=== PATIENT | female | born 1970 | race Hispanic/Latino ===

== ENCOUNTER → 2018-10-19 | Day surgery (SDC) | payer OTHER ==
[~2018-10-19] MED LIST: CLINDAMYCIN PHOS 900MG/ 50ML 50 ML IV ONE; DEXAMETHASONE SOD PHOS INJ 4 MG/ML VIAL ONE; FENTANYL CITRATE/PF 100MCG/2 ML INJ ONE; GLIPIZIDE5 MG PO; HYDROGEN PEROXIDE 120 ML BTL ONE; INHALERS INH; INSULIN REGULAR, HUMAN 100 UNIT/1 ML 3ML VIAL ONE; LIDOCAINE HCL 2% LOCAL INJ 5 ML SDV VIAL INJ ONE; MIDAZOLAM HCL 2 MG/2 ML VIAL ONE; ONDANSETRON HCL INJ 2MG/ML 2ML 2 MG/ML VIAL ONE; PROPOFOL IV EMULSION 10 MG/ML 20 ML VIAL ONE; SEVOFLURANE INHAL SOLN 250 ML PEN BTL ONE; metformin PO
--- OUTSIDE RECORDS SUMMARY | 2018-10-19 10:44 | XMS REPORT | Clinical Summary ---
Author Author [facility] Organization [facility] Address Unknown Phone Unavailable Care Team Providers Care Mathematics Professor Name Role Phone PCP Unavailable Allergies Comments Active Allergy Reactions Severity Noted Date Penicillins Rash 08/18/2014 Medications End Date Status Medication Sig Dispensed Refills Start Date Active naproxen (NAPROSYN) 500 Take 1 tablet 30 tablet 0 mg tabletIndications: by mouth 2 5 Breast mass times daily (with meals). Active albuterol (VENTOLIN Inhale 4 1 Month 0 HFA,PROVENTIL HFA,PROAIR Puffs by Supply 8 HFA) 90 mcg/actuation mouth every 4 inhalerIndications: hours as Cough, Bronchitis needed for Wheezing (Cough). Active traMADol (ULTRAM) 50 mg Take 1 tablet 20 tablet 0 tabletIndications: RUQ by mouth 8 pain every 8 hours as needed for Pain. Active tamsulosin (FLOMAX) 0.4 Take 1 90 capsule 0 mg extended release capsule by 8 capsuleIndications: Flank mouth daily. pain Active ibuprofen (MOTRIN) 800 mg Take 1 tablet 60 tablet 0 tabletIndications: Flank by mouth 8 pain, RUQ pain every 8 hours as needed for Pain. 02/01/2018 Discontinued tamsulosin (FLOMAX) 0.4 Take 1 30 capsule 0 mg extended release capsule by 5 capsuleIndications: Flank mouth daily. pain 02/01/2018 Discontinued acetaminophen-codeine Take 1 tablet 30 tablet 0 (TYLENOL/CODEINE #3) by mouth 5 300-30 mg per every 4 hours tabletIndications: Flank as needed for pain Pain. 02/01/2018 Discontinued pseudoephedrine (SUDAFED) Take 2 30 tablet 0 30 mg tabletIndications: tablets by 8 Cough mouth every 6 hours as needed for Congestion. 05/02/2018 metFORMIN (GLUCOPHAGE) Take 2 360 tablet 0 500 mg tabletIndications: tablets by 8 Type 2 diabetes mellitus mouth 2 times without complication, daily (with without long-term current meals) for 90 use of insulin days. 02/15/2018 Bismuth Subcit Take 3 120 capsule 0 X-Wdwfcdmmn-ZSB (PYLERA) capsules by 8 140-125-125 mg delayed mouth 4 times release daily (after capsuleIndications: H. meals and pylori infection nightly) for 10 days For stomach infection, take with omeprazole. 02/15/2018 omeprazole (PRILOSEC) 20 Take 1 20 capsule 0 mg delayed release capsule by 8 capsuleIndications: H. mouth 2 times pylori infection daily for 10 days For stomach infection - take with pylera antibiotics. 09/17/2018 cefpodoxime (VANTIN) 100 Take 1 tablet 20 tablet 0 mg tabletIndications: by mouth 2 9 Dysuria times daily for 10 days. Active Problems Problem Noted Date H. pylori infection 02/05/2018 Abdominal pain 01/27/2018 RUQ pain 01/26/2018 Type 2 diabetes mellitus without complication, without long-term current 01/26/2018 use of insulin Bilateral nephrolithiasis 01/26/2018 Cough 05/24/2017 Flank pain 03/19/2015 Breast mass 08/18/2014 Chest pain Acute suppurative otitis media of right ear without spontaneous rupture of tympanic membrane Bronchitis Resolved Problems Problem Noted Date Resolved Date Biliary colic 01/26/2018 02/01/2018 Acute cystitis without hematuria 02/01/2018 Pyelonephritis 02/01/2018 Encounters Care Team Description Date Type Specialty Jono Estrella MD Dysuria (Primary Dx); Upper abdominal pain; Chest pain, unspecified type; Pyelonephritis; RUQ pain 09/07/2018 Emergency Emergency Medicine 09/06/2018 Travel Jass Buchanan MD Soni, Samit, MD NO SHOW ENCOUNTER (Primary Dx) 03/05/2018 Office Visit Urology Jass Buchanan MD Results (H pylori stool Ag + 01/28/2018) 02/05/2018 Telephone Peter Arnold MD Huang, William Y, MD Pyelonephritis (Primary Dx); Flank pain; RUQ pain; Bilateral nephrolithiasis; Chest pain on breathing; Right upper quadrant abdominal pain; Type 2 diabetes mellitus without complication, without long-term current use of insulin 01/26/2018 Hospital - Encounter 02/01/2018 after 10/18/2017 Immunizations Name Administration Dates Next Due Influenza, Vaccine 01/29/2018 <FLUCELVAX>(Preservative- Free) PPV 23 (Pneumococcal 01/29/2018 Polysaccharide 23 Valent) Social History Date Tobacco Use Types Packs/Day Years Used Never Smoker Smokeless Tobacco: Never Used Drinks/Week oz/Week Comments Alcohol Use No Sex Assigned at Date Recorded Not on file Industry Job Start Date Occupation Not on file Not on file Not on file Travel End Travel History Travel Start No recent travel history available. Last Filed Vital Signs Reading Time Taken Comments Vital Sign 100/72 09/07/2018 3:24 PM CDT Blood Pressure 65 09/07/2018 3:24 PM CDT Pulse 36.6 C (97.8 F) 09/07/2018 3:24 PM CDT Temperature 17 09/07/2018 3:24 PM CDT Respiratory Rate 99% 09/07/2018 3:24 PM CDT Oxygen Saturation - - Inhaled Oxygen Concentration 88.5 kg (195 lb 3.2 oz) 02/01/2018 6:08 AM CDT Weight 149.9 cm (4' 11") 01/26/2018 8:12 PM CDT Height 39.43 01/26/2018 8:12 PM CDT Body Mass Index Plan of Treatment Health Maintenance Due Date Last Done Comments DM Foot Exam (Yearly) 07/13/1987 DM Microalbumin Urine 07/13/1987 Scrn (Yearly) DM Retinal Exam (Yearly) 07/13/1987 Cervical Cancer Scrn (3 1990 Yrs) Breast Cancer Scrn 2009 (Yearly) IMM Influenza Seasonal 01/22/2019 01/29/2018 Oct to June (>/=19 yrs) DM HGBA1C (Yearly) 01/26/2019 01/26/2018 Procedures Comments Procedure Name Priority Date/Time Associated Diagnosis U/S ABDOMEN LIMITED STAT 09/07/2018 RUQ pain 2:20 PM CDT 12 LEAD EKG Routine 09/07/2018 11:34 AM CDT TROPONIN I POC Routine 09/07/2018 11:19 AM CDT TROPONIN I POC Routine 09/07/2018 8:04 AM CDT 12 LEAD EKG STAT 09/07/2018 7:56 AM CDT XRAY CHEST 2 VIEWS STAT 09/07/2018 Chest pain, unspecified 5:38 AM CDT type 12 LEAD EKG Routine 09/07/2018 5:21 AM CDT URINE CULTURE STAT 09/07/2018 5:17 AM CDT TROPONIN I POC Routine 09/07/2018 5:15 AM CDT BMP POC Routine 09/06/2018 11:52 PM CDT URINALYSIS STAT 09/06/2018 11:48 PM CDT HIV-1/HIV-2 ROUTINE STAT 09/06/2018 SCREENING 11:40 PM CDT LIPASE STAT 09/06/2018 11:40 PM CDT LIVER PROFILE STAT 09/06/2018 11:40 PM CDT CBC/DIFF STAT 09/06/2018 11:40 PM CDT POC GLUCOSE - IN LAB Routine 02/01/2018 (STAT) 12:43 PM CDT COMPREHENSIVE METABOLIC Routine 02/01/2018 PANEL 10:20 AM CDT CBC/DIFF Routine 02/01/2018 10:20 AM CDT POC GLUCOSE - IN LAB Routine 02/01/2018 (STAT) 8:27 AM CDT POC GLUCOSE - IN LAB Routine 01/31/2018 (STAT) 8:52 PM CDT 12 LEAD EKG Routine 01/31/2018 6:53 PM CDT POC GLUCOSE - IN LAB Routine 01/31/2018 (STAT) 5:46 PM CDT POC GLUCOSE - IN LAB Routine 01/31/2018 (STAT) 12:11 PM CDT POC GLUCOSE - IN LAB Routine 01/31/2018 (STAT) 9:37 AM CDT COMPREHENSIVE METABOLIC STAT 01/31/2018 PANEL 4:50 AM CDT CBC/DIFF STAT 01/31/2018 4:50 AM CDT POC GLUCOSE - IN LAB Routine 01/30/2018 (STAT) 8:28 PM CDT POC GLUCOSE - IN LAB Routine 01/30/2018 (STAT) 5:34 PM CDT POC GLUCOSE - IN LAB Routine 01/30/2018 (STAT) 12:44 PM CDT POC GLUCOSE - IN LAB Routine 01/30/2018 (STAT) 8:22 AM CDT COMPREHENSIVE METABOLIC STAT 01/30/2018 PANEL 5:14 AM CDT CBC/DIFF STAT 01/30/2018 5:14 AM CDT POC GLUCOSE - IN LAB Routine 01/29/2018 (STAT) 8:50 PM CDT POC GLUCOSE - IN LAB Routine 01/29/2018 (STAT) 5:43 PM CDT NM HEPATOBILIARY SCAN Routine 01/29/2018 Right upper quadrant 1:16 PM CDT abdominal pain POC GLUCOSE - IN LAB Routine 01/29/2018 (STAT) 12:28 PM CDT POC GLUCOSE - IN LAB Routine 01/29/2018 (STAT) 8:25 AM CDT COMPREHENSIVE METABOLIC STAT 01/29/2018 PANEL 5:25 AM CDT CBC/DIFF STAT 01/29/2018 5:25 AM CDT POC GLUCOSE - IN LAB Routine 01/28/2018 (STAT) 8:48 PM CDT POC GLUCOSE - IN LAB Routine 01/28/2018 (STAT) 5:48 PM CDT POC GLUCOSE - IN LAB Routine 01/28/2018 (STAT) 12:41 PM CDT SEQUENTIAL COMPRESSION STAT 01/28/2018 PUMP 12:22 PM CDT H. PYLORI STOOL AG Routine 01/28/2018 12:09 PM CDT POC GLUCOSE - IN LAB Routine 01/28/2018 (STAT) 8:33 AM CDT COMPREHENSIVE METABOLIC STAT 01/28/2018 PANEL 4:00 AM CDT CBC/DIFF STAT 01/28/2018 4:00 AM CDT POC GLUCOSE - IN LAB Routine 01/27/2018 (STAT) 9:12 PM CDT POC GLUCOSE - IN LAB Routine 01/27/2018 (STAT) 5:26 PM CDT POC GLUCOSE - IN LAB Routine 01/27/2018 (STAT) 1:09 PM CDT POC GLUCOSE - IN LAB Routine 01/27/2018 (STAT) 11:33 AM CDT POC GLUCOSE - IN LAB Routine 01/27/2018 (STAT) 8:29 AM CDT COMPREHENSIVE METABOLIC STAT 01/27/2018 PANEL 6:00 AM CDT CBC/DIFF STAT 01/27/2018 6:00 AM CDT INFUSION PUMP STAT 01/26/2018 10:14 PM CDT POC GLUCOSE - IN LAB Routine 01/26/2018 (STAT) 10:13 PM CDT URINALYSIS STAT 01/26/2018 9:39 PM CDT HEMOGLOBIN A1C Routine 01/26/2018 7:34 PM CDT POC GLUCOSE - IN LAB Routine 01/26/2018 (STAT) 7:31 PM CDT URINALYSIS STAT 01/26/2018 6:48 PM CDT URINE CULTURE STAT 01/26/2018 6:40 PM CDT POC GLUCOSE - IN LAB Routine 01/26/2018 (STAT) 6:10 PM CDT XRAY CHEST 2 VIEWS STAT 01/26/2018 Chest pain on breathing 6:04 PM CDT U/S ABDOMEN STAT 01/26/2018 RUQ pain 1:[address] ABDOMEN AND PELVIS STAT 01/26/2018 Flank pain CONTRAST 5:12 AM CDT VBG POC Routine 01/25/2018 10:01 PM CDT BMP POC Routine 01/25/2018 9:56 PM CDT 12 LEAD EKG Routine 01/25/2018 9:55 PM CDT TEST STAT 01/25/2018 9:41 PM CDT HIV-1/HIV-2 ROUTINE STAT 01/25/2018 SCREENING 9:41 PM CDT URINALYSIS STAT 01/25/2018 9:41 PM CDT LIPASE STAT 01/25/2018 9:41 PM CDT LIVER PROFILE STAT 01/25/2018 9:41 PM CDT CBC/DIFF STAT 01/25/2018 9:41 PM CDT after 10/18/2017 Results * U/S ABDOMEN LIMITED (09/07/2018 2:20 PM CDT) Specimen Impressions Performed At IMPRESSION: [facility] 1.Steatosis and hepatomegaly. No focal mass. 2.Nonobstructing nephrolithiasis. 3.Right renal simple cyst, unchanged. A "PRELIMINARY" report was made available via [employer] at the time of dictation by the resident indicated below. The report is finalized if attending/staff radiologist signature is included. Dictated By: Kirby Acosta DO, 09/07/2018 3:10 PM I have reviewed the study and agree with the findings in this report. Signed By: Lauri Patel, 09/07/2018 3:16 PM Narrative Performed At EXAM: Right Upper Quadrant Ultrasound SMS INDICATION: ruq pain COMPARISON: Abdominal ultrasound 01/26/2018, abdominal pelvis CT 01/26/2018 TECHNIQUE: Transverse and longitudinal images of the right upper abdomen were obtained. FINDINGS: Liver: Size: 16.4 cm in the right midclavicular line Appearance: Mildly increased echogenicity, smooth contour Mass: No focal masses Gallbladder: Stones/Sludge: None Wall: 0.2 cm Appearance: No pericholecystic fluid or hydrops. Sonographic Campos's Sign: Negative Bile Ducts: Intrahepatic Ducts: No dilatation Extrahepatic Ducts: Common bile duct measures 0.3 cm Pancreas: Visualized portions are increased in echotexture consistent with lipomatosis. No masses or ductal dilatation. Right Kidney: Size: 12.9 cm Echogenicity: Normal Parenchymal thickness: Normal Collecting system: No hydronephrosis Stones: 0.6 x 0.4 x 0.3 cm nonobstructing calculus in inferior pole Cyst/Mass: 0.9 x 1.1 x 1 cm anechoic unilocular simple cyst at inferior pole. Vessels: Aorta: Visualized portions are normal Inferior Vena Cava: Visualized portions are normal Main Portal Vein: 1.0 cm, normal size with hepatopetal flow. Free Fluid: No ascites or pleural effusion Procedure Note Interface, Rad/Mammog In - 09/07/2018 3:22 PM CDT EXAM: Right Upper Quadrant Ultrasound INDICATION: ruq pain COMPARISON: Abdominal ultrasound 01/26/2018, abdominal pelvis CT 01/26/2018 TECHNIQUE: Transverse and longitudinal images of the right upper abdomen were obtained. FINDINGS: Liver: Size: 16.4 cm in the right midclavicular line Appearance: Mildly increased echogenicity, smooth contour Mass: No focal masses Gallbladder: Stones/Sludge: None Wall: 0.2 cm Appearance: No pericholecystic fluid or hydrops. Sonographic Campos's Sign: Negative Bile Ducts: Intrahepatic Ducts: No dilatation Extrahepatic Ducts: Common bile duct measures 0.3 cm Pancreas: Visualized portions are increased in echotexture consistent with lipomatosis. No masses or ductal dilatation. Right Kidney: Size: 12.9 cm Echogenicity: Normal Parenchymal thickness: Normal Collecting system: No hydronephrosis Stones: 0.6 x 0.4 x 0.3 cm nonobstructing calculus in inferior pole Cyst/Mass: 0.9 x 1.1 x 1 cm anechoic unilocular simple cyst at inferior pole. Vessels: Aorta: Visualized portions are normal Inferior Vena Cava: Visualized portions are normal Main Portal Vein: 1.0 cm, normal size with hepatopetal flow. Free Fluid: No ascites or pleural effusion IMPRESSION IMPRESSION: 1. Steatosis and hepatomegaly. No focal mass. 2. Nonobstructing nephrolithiasis. 3. Right renal simple cyst, unchanged. A "PRELIMINARY" report was made available via [employer] at the time of dictation by the resident indicated below. The report is finalized if attending/staff radiologist signature is included. Dictated By: Kirby Acosta DO, 09/07/2018 3:10 PM I have reviewed the study and agree with the findings in this report. Signed By: Lauri Patel, 09/07/2018 3:16 PM Performing Organization Address City/State/Zipcode Phone Number SMS * 12 LEAD EKG (09/07/2018 11:34 AM CDT) 12 LEAD EKG FOR [facility] Test Date:2018-09-07 Pat Name: KYLE MCCARTHY epartment: 5520 Room: Gender: Clinical Specialty Rep: [id number] :1971-0 07-12 Requested By: JUANCARLOS [place] Order Number: [id number] Reading MD: Christina Wiley Measurements Intervals [place] Rate: 56 P:28 DC: 136 QRS: 3 QRSD: 96 T:-6 QT: 477 QTc:464 Interpretive Statements SINUS BRADYCARDIA LOW QRS VOLTAGE IN PRECORDIAL LEADS [QRS DEFLECTION < 1.0 mV IN CHEST LEADS] Electronically Signed On 09-07-2018 17:16:23 CDT by Christina Wiley Specimen Performing Organization Address [facility] Phone Number [facility] * TROPONIN I POC (09/07/2018 11:19 AM CDT) Only the most recent of 3 results within the time period is included. Troponin POC 0.01 0.00 - 0.08 ng/mL BT MAIN-STATION 1 Specimen Performing Organization Address [facility] Phone Number MISYS BT MAIN-STATION 1 * 12 LEAD EKG (09/07/2018 7:56 AM CDT) 12 LEAD EKG FOR [facility] Test Date:2018-09-07 Pat Name: KYLE MCCARTHY epartment: 5520 Room: Gender: Clinical Specialty Rep: [id number] :1971-0 07-12 Requested By: JONO ESTRELLA Order Number: [id number] Reading MD: Christina Wiley Measurements Intervals [place] Rate: 60 P:38 DC: 149 QRS: 10 QRSD: 86 T:-8 QT: 455 QTc:457 Interpretive Statements SINUS RHYTHM LOW QRS VOLTAGE IN PRECORDIAL LEADS Electronically Signed On 09-07-2018 17:16:33 CDT by Christina Wiley Specimen Performing Organization Address [facility] Phone Number [facility] * XRAY CHEST 2 VIEWS (09/07/2018 5:38 AM CDT) Only the most recent of 2 results within the time period is included. Specimen Impressions Performed At IMPRESSION: [facility] No acute thoracic abnormality. Dictated By: Juan F Blanco MD, 09/07/2018 5:43 AM I have reviewed the study and agree with the findings in this report. Signed By: Duke Forte MD, 09/07/2018 6:06 AM Narrative Performed At EXAMINATION:XRAY CHEST 2 VIEWS, Frontal and lateral [facility] INDICATION: chest pain COMPARISON:Chest radiograph from 01/26/2018. FINDINGS: TUBES/LINES:None LUNGS:No consolidations or edema. PLEURA:No effusions or pneumothorax. HEART/MEDIASTINUM:Normal cardiomediastinal silhouette. MUSCULOSKELETAL:No acute findings. UPPER ABDOMEN: Normal Procedure Note Interface, Rad/Mammog In - 09/07/2018 6:11 AM CDT EXAMINATION: XRAY CHEST 2 VIEWS, Frontal and lateral INDICATION: chest pain COMPARISON: Chest radiograph from 01/26/2018. FINDINGS: TUBES/LINES: None LUNGS: No consolidations or edema. PLEURA: No effusions or pneumothorax. HEART/MEDIASTINUM: Normal cardiomediastinal silhouette. MUSCULOSKELETAL: No acute findings. UPPER ABDOMEN: Normal IMPRESSION IMPRESSION: No acute thoracic abnormality. Dictated By: Juan F Blanco MD, 09/07/2018 5:43 AM I have reviewed the study and agree with the findings in this report. Signed By: Duke Forte MD, 09/07/2018 6:06 AM Performing Organization Address City/[facility] Phone Number [facility] * 12 LEAD EKG (09/07/2018 5:21 AM CDT) 12 LEAD EKG FOR [facility] Test Date:2018-09-07 Pat Name: KYLE MCCARTHY epartment: 5520 Room: Gender: F Clinical Specialty Rep: [id number] :1971-0 07-12 Requested By: JONO ESTRELLA Order Number: [id number] Reading MD: Pieter Paulino M.D. Measurements Intervals [place] Rate: 67 P:37 DC: 148 QRS: -3 QRSD: 85 T:-15 QT: 418 QTc:444 Interpretive Statements SINUS RHYTHM LOW QRS VOLTAGE IN PRECORDIAL LEADS NONSPECIFIC T-WAVE ABNORMALITY Electronically Signed On 09-07-2018 5:48:21 CDT by Pieter Paulino M.D. Specimen Performing Organization Address [facility] Phone Number [facility] * URINE CULTURE (09/07/2018 5:17 AM CDT) Only the most recent of 2 results within the time period is included. Spec Urine BT MICROBIOLOGY Description Order Comments None BT MICROBIOLOGY Culture 10,000-100,000 CFU/ml BT MICROBIOLOGY Klebsiella pneumoniae Skin yuri organisms Report Status Final 09/09/2018 BT MICROBIOLOGY Organism 10,000-100,000 CFU/ml BT MICROBIOLOGY Klebsiella pneumoniae Method TREY BT MICROBIOLOGY Amikacin <=8 Susceptible BT MICROBIOLOGY Cefazolin >16 Resistant BT MICROBIOLOGY Cefepime <=1 Susceptible BT MICROBIOLOGY Ceftriaxone <=1 Susceptible BT MICROBIOLOGY Ceftazidime <=0.5 Susceptible BT MICROBIOLOGY Ciprofloxacin 1 Susceptible BT MICROBIOLOGY Ertapenem <=0.25 Susceptible BT MICROBIOLOGY Gentamicin <=2 Susceptible BT MICROBIOLOGY Meropenem <=0.5 Susceptible BT MICROBIOLOGY Nitrofurantoin >64 Resistant BT MICROBIOLOGY Piperacillin/Ta 16/4 Susceptible BT MICROBIOLOGY zo Tobramycin <=2 Susceptible BT MICROBIOLOGY Trimeth-sulfame <=0.5/9.5 Susceptible BT MICROBIOLOGY thox Specimen Urine - Voided, urine Performing Organization Address [facility] Phone Number MISYS BT MICROBIOLOGY * BMP POC (09/06/2018 11:52 PM CDT) Only the most recent of 2 results within the time period is included. CO2 POC 27Comment: Physician Notified 21 - 32 mmol/L BT MAIN-STATION 1 Chloride POC 97 (L) 98 - 107 mmol/L BT MAIN-STATION 1 Potassium POC 3.8 3.50 - 5.10 mmol/L BT MAIN-STATION 1 Sodium POC 136 136 - 145 mmol/L BT MAIN-STATION 1 Glucose POC 283 (H) 74 - 106 mg/dL BT MAIN-STATION 1 Urea Nitrogen 8 7 - 18 mg/dL BT MAIN-STATION POC 1 Creatinine POC 0.4 (L) 0.6 - 1.3 mg/dL BT MAIN-STATION 1 Calcium Ionized 1.12 (L) 1.15 - 1.29 mmol/L BT MAIN-STATION POC 1 Hemoglobin POC 15.3 12.0 - 16.0 g/dL BT MAIN-STATION 1 Hematocrit POC 45.0 37.0 - 47.0 % BT MAIN-STATION 1 GFR, Estimated >60 mL/min/1.73 m2 BT MAIN-STATION 1 GFR, Estim, >60 mL/min/1.73 m2 BT MAIN-STATION Afr-Am 1 Specimen Performing Organization Address [facility] Phone Number MISYS BT MAIN-STATION 1 * UA CHEMISTRIES (09/06/2018 11:48 PM CDT) Only the most recent of 4 results within the time period is included. Color Yellow BT MAIN-STATION 3 Clarity Cloudy BT MAIN-STATION 3 Specific 1.025 1.001 - 1.035 BT MAIN-STATION [place] 3 pH 6.0 5 - 8 BT MAIN-STATION 3 Protein 1+ (A) NEG BT MAIN-STATION 3 Glucose 3+ (A) NEG BT MAIN-STATION 3 Ketones Negative NEG BT MAIN-STATION 3 Bilirubin Negative NEG BT MAIN-STATION 3 Nitrate Positive (A) NEG BT MAIN-STATION 3 Urobilinogen,Se 1.0 0.2 - 1.0 EU/dL BT MAIN-STATION mi-Qn 3 Leukocyte 3+ (A) NEG BT MAIN-STATION 3 Occult Blood Negative NEG BT MAIN-STATION 3 RBC 17 (H) 0 - 4 /HPF BT MAIN-STATION 3 WBC >182 (H) 0 - 5 /HPF BT MAIN-STATION 3 WBC Clumps Few BT MAIN-STATION 3 Bacteria Many BT MAIN-STATION 3 Epithelial Cell 1 /HPF BT MAIN-STATION 3 Specimen Urine Performing Organization Address [facility] Phone Number MISYS BT MAIN-STATION 3 * HIV-1/HIV-2 ROUTINE SCREENING (09/06/2018 11:40 PM CDT) Only the most recent of 2 results within the time period is included. HIV-1/HIV-2 Negative NEG BT OUTPATIENT DRAW 2 Specimen Performing Organization Address [facility] Phone Number MISYS BT OUTPATIENT DRAW 2 * LIVER PROFILE (09/06/2018 11:40 PM CDT) Only the most recent of 2 results within the time period is included. Protein, Total, 6.8 6.0 - 8.3 g/dL BT MAIN-STATION Serum 1 Albumin 4.0 3.7 - 5.3 g/dL BT MAIN-STATION 1 Bilirubin, 1.1 0.2 - 1.2 mg/dL BT MAIN-STATION Total 1 Alkaline 125 (H) 34 - 104 U/L BT MAIN-STATION Phosphatase, S 1 AST (SGOT) 18 13 - 39 U/L BT MAIN-STATION 1 ALT 19 7 - 52 U/L BT MAIN-STATION 1 D Bilirubin 0.1 0.0 - 0.2 mg/dL BT MAIN-STATION 1 Specimen Blood Performing Organization Address [facility] Phone Number MISYS BT MAIN-STATION 1 * LIPASE (09/06/2018 11:40 PM CDT) Only the most recent of 2 results within the time period is included. Lipase 34 11 - 82 U/L BT MAIN-STATION 1 Specimen Blood Performing Organization Address [facility] Phone Number MISYS BT MAIN-STATION 1 * CBC/DIFF (09/06/2018 11:40 PM CDT) Only the most recent of 8 results within the time period is included. WBC 8.7 4.5 - 11.0 K/uL BT MAIN-STATION 2 RBC 4.95 4.20 - 5.40 M/uL BT MAIN-STATION 2 Hemoglobin 14.1 12.0 - 16.0 g/dL BT MAIN-STATION 2 Hematocrit 43.1 37.0 - 47.0 % BT MAIN-STATION 2 MCV 87 82 - 92 fL BT MAIN-STATION 2 MCH 28.5 27.0 - 32.0 pg BT MAIN-STATION 2 MCHC 32.7 32.0 - 36.0 g/dL BT MAIN-STATION 2 RDW 39.0 36.4 - 46.3 fL BT MAIN-STATION 2 Platelets 255 150 - 400 K/uL BT MAIN-STATION 2 Mean Platelet 10.2 9.4 - 12.4 fL BT MAIN-STATION Volume 2 Percent NRBC 0.0 BT MAIN-STATION 2 Absolute NRBC 0.00 BT MAIN-STATION 2 Neutrophils 71.1 (H) 34.0 - 70.0 % BT MAIN-STATION 2 Lymphs 19.8 (L) 20.0 - 50.0 % BT MAIN-STATION 2 Monocytes 4.0 (L) 5.0 - 12.0 % BT MAIN-STATION 2 Eos 4.3 0.7 - 5.0 % BT MAIN-STATION 2 Basos 0.5 0.1 - 1.2 % BT MAIN-STATION 2 Immature 0.3 0.0 - 0.5 BT MAIN-STATION Granulocytes 2 Neutrophils 6.19 (H) 1.56 - 6.13 K/uL BT MAIN-STATION (Absolute) 2 Lymphs 1.72 1.18 - 3.74 K/uL BT MAIN-STATION (Absolute) 2 Monocytes(Absol 0.35 0.24 - 0.36 K/uL BT MAIN-STATION [place]) 2 Eos (Absolute) 0.37 (H) 0.04 - 0.36 K/uL BT MAIN-STATION 2 Baso (Absolute) 0.04 0.01 - 0.08 K/uL BT MAIN-STATION 2 Immature Grans 0.03 0.00 - 0.03 K/uL BT MAIN-STATION (Abs) 2 Specimen Blood Performing Organization Address City/State/Zipcode Phone Number MISYS BT MAIN-STATION 2 * GLUCOSE POC (02/01/2018 12:43 PM CDT) Only the most recent of 26 results within the time period is included. Glucose POC 198 (H) 74 - 106 mg/dL BT MAIN-STATION 1 Specimen Performing Organization Address City/[facility] Phone Number MISYS BT MAIN-STATION 1 * COMPREHENSIVE METABOLIC PANEL(DBIL NOT INCLUDED) (02/01/2018 10:20 AM CDT) Only the most recent of 6 results within the time period is included. Albumin 3.2 (L) 3.7 - 5.3 g/dL BT MAIN-STATION 1 Calcium 8.6 8.6 - 10.3 mg/dL BT MAIN-STATION 1 CO2 28 21 - 31 mmol/L BT MAIN-STATION 1 Chloride 105 98 - 107 mmol/L BT MAIN-STATION 1 Creatinine 0.50 (L) 0.6 - 1.2 mg/dL BT MAIN-STATION 1 Glucose 241 (H) 70 - 110 mg/dL BT MAIN-STATION 1 Alkaline 74 34 - 104 U/L BT MAIN-STATION Phosphatase, S 1 Potassium 3.7 3.5 - 5.1 mmol/L BT MAIN-STATION 1 Sodium 140 136 - 145 mmol/L BT MAIN-STATION 1 ALT 23 7 - 52 U/L BT MAIN-STATION 1 AST (SGOT) 20 13 - 39 U/L BT MAIN-STATION 1 BUN 8 7 - 25 mg/dL BT MAIN-STATION 1 Bilirubin, 0.7 0.2 - 1.2 mg/dL BT MAIN-STATION Total 1 Protein, Total, 5.4 (L) 6.0 - 8.3 g/dL BT MAIN-STATION Serum 1 GFR, Estimated >60 mL/min/1.73 m2 BT MAIN-STATION 1 eGFR If Africn >60 mL/min/1.73 m2 BT MAIN-STATION Am 1 Anion Gap 7 BT MAIN-STATION 1 Specimen Blood Performing Organization Address City/[facility]/Zipcode Phone Number [facility] BT MAIN-STATION 1 * 12 LEAD EKG (01/31/2018 6:53 PM CDT) 12 LEAD EKG FOR [facility] Test Date:2018-01-31 Pat Name: KYLE MCCARTHY epartment: Room: Gender: F Clinical Specialty Rep: [id number] :1971-0 07-12 Requested By: Order Number: Jessica bar MD: Pieter Paulino M.D. Measurements Intervals [place] Rate: 58 P:25 DC: 142 QRS: 4 QRSD: 93 T:4 QT: 454 QTc:446 Interpretive Statements SINUS BRADYCARDIA Electronically Signed On 02-01-18 04:30:08 CDT by Pieter Paulino M.D. Specimen Performing Organization Address City/State/Zipcode Phone Number SMS * NM HEPATOBILIARY SCAN (01/29/2018 1:16 PM CDT) Specimen Impressions Performed At IMPRESSION: [facility] Filling of the gallbladder excludes acute cystic duct obstruction/acute cholecystitis. Dictated By: Mark Harvey MD, 01/29/2018 2:31 PM I have reviewed the study and agree with the findings in this report. Signed By: Nely Diana MD, 01/29/2018 3:22 PM Narrative Performed At HEPATOBILIARY SCAN SMS CLINICAL INFORMATION: Right upper quadrant pain. COMPARISON STUDIES: Abdominal ultrasound 01/26/2018 TECHNIQUE:The patient had been NPO for more than 14 hours; whole milk was given 1 hour prior to injection to empty the gallbladder before starting the study. Following intravenous administration of Tc-99m mebrofenin 6.6 mCi, dynamic images of the abdomen in the anterior projection were obtained through 60 minutes. DISCUSSION: Perfusion of the liver is normal.Extraction of tracer by the liver parenchyma is normal. Tracer appears promptly within the biliary tract.The gallbladder begins to fill by 45 minutes post-injection of tracer and fills adequately.Tracer is seen in the small bowel by 15 minutes. Procedure Note Interface, Rad/Mammog In - 01/29/2018 3:27 PM CDT HEPATOBILIARY SCAN CLINICAL INFORMATION: Right upper quadrant pain. COMPARISON STUDIES: Abdominal ultrasound 01/26/2018 TECHNIQUE: The patient had been NPO for more than 14 hours; whole milk was given 1 hour prior to injection to empty the gallbladder before starting the study. Following intravenous administration of Tc-99m mebrofenin 6.6 mCi, dynamic images of the abdomen in the anterior projection were obtained through 60 minutes. DISCUSSION: Perfusion of the liver is normal. Extraction of tracer by the liver parenchyma is normal. Tracer appears promptly within the biliary tract. The gallbladder begins to fill by 45 minutes post-injection of tracer and fills adequately. Tracer is seen in the small bowel by 15 minutes. IMPRESSION IMPRESSION: Filling of the gallbladder excludes acute cystic duct obstruction/acute cholecystitis. Dictated By: Mark Harvey MD, 01/29/2018 2:31 PM I have reviewed the study and agree with the findings in this report. Signed By: Nely Diana MD, 01/29/2018 3:22 PM Performing Organization Address City/State/Zipcode Phone Number SMS * H. PYLORI STOOL AG (01/28/2018 12:09 PM CDT) H pylori Ag Positive LABORATORY Stool Reference range: Negative [facility] OF (A) [facility] Specimen Performing Organization Address City/State/Zipcode Phone Number [facility] [address] [place] [address] [place] 145 * HEMOGLOBIN A1C (01/26/2018 7:34 PM CDT) Hemoglobin A1c 10.5 (H) 4.3 - 6.1 % BT DIAGNOSTIC IMMUNOLOGY Est Average 254.7 mg/dL BT DIAGNOSTIC Gluc IMMUNOLOGY Specimen Blood Performing Organization Address [facility] Phone Number [facility] BT DIAGNOSTIC IMMUNOLOGY * U/S ABDOMEN (01/26/2018 1:24 PM CDT) Specimen Impressions Performed At IMPRESSION: SMS 1.Hepatomegaly with diffuse hepatic steatosis. 2.Normal gallbladder. No stones visualized. 3.Bilateral nonobstructing renal stones. Signed By: Freddy John MD, 01/26/2018 1:29 PM Narrative Performed At EXAM: Complete Abdominal Ultrasound SMS INDICATION: cholecystitis COMPARISON: CT abdomen pelvis 01/26/2018. TECHNIQUE: Transverse and longitudinal images of the upper abdomen were obtained. FINDINGS: Liver: Size: 18.8 cm in the right midclavicular line, enlarged Appearance: Increased echogenicity, smooth contour Mass: No focal masses Spleen: Size: 9.3 cm in length, normal Echogenicity: Normal Mass: No focal masses Gallbladder: Stones/Sludge: None Wall: 0.2 cm Appearance: No pericholecystic fluid or hydrops. Sonographic Campos's Sign: Negative Bile Ducts: Intrahepatic Ducts: No dilatation Extrahepatic Ducts: Common bile duct measures 0.4 cm, no dilatation Pancreas: Visualized portions of the pancreatic head, neck and proximal body are normal. Right Kidney: Size:12.7 cm Echogenicity:Normal Parenchymal thickness: Normal Collecting System:No hydronephrosis Stone:0.7 x 0.4 x 0.6 cm stone inferior pole. Cyst/Mass: 1.4 x 1.0 x 1.1 cm simple cyst in inferior pole. Left Kidney: Size:12.4 cm Echogenicity:Normal Parenchymal thickness: Normal Collecting System:No hydronephrosis Stone:0.4 x 0.4 x 0.6 cm stone in the inferior pole. Cyst/Mass: None Vessels: Aorta: Visualized portions are normal Inferior Vena Cava: Visualized portions are normal Main Portal Vein: 0.9 cm, normal size with hepatopetal flow. Free Fluid: No ascites or pleural effusion Procedure Note Interface, Rad/Mammog In - 01/26/2018 1:34 PM CDT EXAM: Complete Abdominal Ultrasound INDICATION: cholecystitis COMPARISON: CT abdomen pelvis 01/26/2018. TECHNIQUE: Transverse and longitudinal images of the upper abdomen were obtained. FINDINGS: Liver: Size: 18.8 cm in the right midclavicular line, enlarged Appearance: Increased echogenicity, smooth contour Mass: No focal masses Spleen: Size: 9.3 cm in length, normal Echogenicity: Normal Mass: No focal masses Gallbladder: Stones/Sludge: None Wall: 0.2 cm Appearance: No pericholecystic fluid or hydrops. Sonographic Campos's Sign: Negative Bile Ducts: Intrahepatic Ducts: No dilatation Extrahepatic Ducts: Common bile duct measures 0.4 cm, no dilatation Pancreas: Visualized portions of the pancreatic head, neck and proximal body are normal. Right Kidney: Size: 12.7 cm Echogenicity: Normal Parenchymal thickness: Normal Collecting System: No hydronephrosis Stone: 0.7 x 0.4 x 0.6 cm stone inferior pole. Cyst/Mass: 1.4 x 1.0 x 1.1 cm simple cyst in inferior pole. Left Kidney: Size: 12.4 cm Echogenicity: Normal Parenchymal thickness: Normal Collecting System: No hydronephrosis Stone: 0.4 x 0.4 x 0.6 cm stone in the inferior pole. Cyst/Mass: None Vessels: Aorta: Visualized portions are normal Inferior Vena Cava: Visualized portions are normal Main Portal Vein: 0.9 cm, normal size with hepatopetal flow. Free Fluid: No ascites or pleural effusion IMPRESSION IMPRESSION: 1. Hepatomegaly with diffuse hepatic steatosis. 2. Normal gallbladder. No stones visualized. 3. Bilateral nonobstructing renal stones. Signed By: Freddy John MD, 01/26/2018 1:29 PM Performing Organization Address City/State/Zipcode Phone Number SMS * CT ABDOMEN AND PELVIS CONTRAST (01/26/2018 5:12 AM CDT) Specimen Impressions Performed At IMPRESSION: SMS 1.Radiopaque sludge versus stone in the gallbladder neck without evidence of cholecystitis. 2.Persistent bilateral nonobstructive nephrolithiasis. These findings may explain persistent flank pain Dictated By: Skinny Mackenzie MD, 01/26/2018 5:42 AM I have reviewed the study and agree with the findings in this report. Signed By: Zafar Mccullough MD, 01/26/2018 6:45 AM Narrative Performed At EXAM: CT Abdomen and Pelvis WITH contrast SMS INDICATION: RUQ pain, flank pain COMPARISON: Abdomen and pelvis CT without contrast 03/19/2015 TECHNIQUE: Abdomen and pelvis were scanned utilizing a multidetector helical scanner from the lung base to the pubic symphysis after administration of IV contrast. Coronal and sagittal reformations were obtained. Routine protocol was performed. Scan was performed during portal venous phase. IV CONTRAST: 150 mL of Omnipaque 300 ORAL CONTRAST: None COMPLICATIONS: None RADIATION DOSE: Total DLP: 907 mGy*cm Estimated effective dose: (DLP x 0.015 x size factor) mSv CTDIvol has been reviewed. It is below the limits set by the Radiation Protocol Committee (RPC). FINDINGS: LINES and TUBES: None. LOWER THORAX: Bibasilar atelectasis. HEPATOBILIARY: Diffuse hypoattenuation compatible with steatosis.No focal hepatic lesions. No biliary ductal dilation. GALLBLADDER: Radiopaque stone versus sludge in the gallbladder neck.No wall thickening. SPLEEN: No splenomegaly. PANCREAS: No focal masses or ductal dilatation. ADRENALS: No adrenal nodules KIDNEYS/URETERS: Kidneys enhance symmetrically.No hydronephrosis. 1 cm right inferior pole simple cyst.Bilateral inferior pole nonobstructive 4 mm calculi. GI TRACT: No abnormal distention, wall thickening, or evidence of bowel obstruction.Appendix is normal. PELVIC ORGANS/BLADDER: Patient is status post total abdominal hysterectomy and bilateral salpingo-oophorectomy LYMPH NODES: No lymphadenopathy. Persistent 0.7 cm hepatoportal lymph node (image 36 of series 2), nonspecific. VESSELS: Unremarkable. PERITONEUM / RETROPERITONEUM: No free air or fluid. BONES: L5-S1 degeneration. SOFT TISSUES: Unremarkable. Procedure Note Interface, Rad/Mammog In - 01/26/2018 6:50 AM CDT EXAM: CT Abdomen and Pelvis WITH contrast INDICATION: RUQ pain, flank pain COMPARISON: Abdomen and pelvis CT without contrast 03/19/2015 TECHNIQUE: Abdomen and pelvis were scanned utilizing a multidetector helical scanner from the lung base to the pubic symphysis after administration of IV contrast. Coronal and sagittal reformations were obtained. Routine protocol was performed. Scan was performed during portal venous phase. IV CONTRAST: 150 mL of Omnipaque 300 ORAL CONTRAST: None COMPLICATIONS: None RADIATION DOSE: Total DLP: 907 mGy*cm Estimated effective dose: (DLP x 0.015 x size factor) mSv CTDIvol has been reviewed. It is below the limits set by the Radiation Protocol Committee (RPC). FINDINGS: LINES and TUBES: None. LOWER THORAX: Bibasilar atelectasis. HEPATOBILIARY: Diffuse hypoattenuation compatible with steatosis. No focal hepatic lesions. No biliary ductal dilation. GALLBLADDER: Radiopaque stone versus sludge in the gallbladder neck. No wall thickening. SPLEEN: No splenomegaly. PANCREAS: No focal masses or ductal dilatation. ADRENALS: No adrenal nodules KIDNEYS/URETERS: Kidneys enhance symmetrically. No hydronephrosis. 1 cm right inferior pole simple cyst. Bilateral inferior pole nonobstructive 4 mm calculi. GI TRACT: No abnormal distention, wall thickening, or evidence of bowel obstruction. Appendix is normal. PELVIC ORGANS/BLADDER: Patient is status post total abdominal hysterectomy and bilateral salpingo-oophorectomy LYMPH NODES: No lymphadenopathy. Persistent 0.7 cm hepatoportal lymph node (image 36 of series 2), nonspecific. VESSELS: Unremarkable. PERITONEUM / RETROPERITONEUM: No free air or fluid. BONES: L5-S1 degeneration. SOFT TISSUES: Unremarkable. IMPRESSION IMPRESSION: 1. Radiopaque sludge versus stone in the gallbladder neck without evidence of cholecystitis. 2. Persistent bilateral nonobstructive nephrolithiasis. These findings may explain persistent flank pain Dictated By: Skinny Mackenzie MD, 01/26/2018 5:42 AM I have reviewed the study and agree with the findings in this report. Signed By: Zafar Mccullough MD, 01/26/2018 6:45 AM Performing Organization Address City/State/Zipcode Phone Number SMS * VBG POC (01/25/2018 10:01 PM CDT) pH, Glenn POC 7.41 7.33 - 7.43 BT MAIN-STATION 1 pCO2, Glenn POC 49.9 38.0 - 50.0 mm Hg BT MAIN-STATION 1 pO2, Glenn POC 19 (L) 50 - 75 mm Hg BT MAIN-STATION 1 Base Excess, 6 mmol/L BT MAIN-STATION Glenn POC 1 HCO3, Glenn POC 31.6 (H) 22.0 - 26.0 mmol/L BT MAIN-STATION 1 % Sat, Glenn POC 29 (L) 60 - 85 % BT MAIN-STATION 1 Lactic Acid, 1.17 0.4 - 2.0 mmol/L BT MAIN-STATION Glenn POC 1 Sample Type Glenn BT MAIN-STATION 1 TCO2, GLENN POC 33 (H) 21 - 32 mmol/L BT MAIN-STATION 1 Specimen Performing Organization Address City/[facility] Phone Number [facility] BT MAIN-STATION 1 * 12 LEAD EKG (01/25/2018 9:55 PM CDT) 12 LEAD EKG FOR [facility] Test Date:2018-01-25 Pat Name: KYLE MCCARTHY epartment: Room: Gender: F Clinical Specialty Rep: [id number] :1971-0 07-12 Requested By: Order Number: Jessica bar MD: justin guzman Measurements Intervals [place] Rate: 95 P:26 DC: 129 QRS: -15 QRSD: 89 T:9 QT: 350 QTc:440 Interpretive Statements SINUS RHYTHM NONSPECIFIC T-WAVE ABNORMALITY Electronically Signed On 01-25-18 22:36:22 CDT by justin guzman Specimen Performing Organization Address City/State/Zipcode Phone Number SMS * TEST (01/25/2018 9:41 PM CDT) Negative BT MAIN-STATION 3 Specimen Urine Performing Organization Address City/State/Zipcode Phone Number MISYS BT MAIN-STATION 3 after 10/18/2017 Insurance Type Payer Benefit Subscriber ID Effective Phone Address Plan / Dates Group HEATHER ROMERO xxxxxxxxxxx 2017-P [phone] [id number] [place] [id number] [facility] SELF-PAY SELF-PAY xxxxxxx 2018- [phone] [address] [place] [address] Advance Directives Date Inactivated Comments Code Status Date Activated 02/01/2018 7:54 PM Full Code 01/26/2018 5:29 PM
--- OUTSIDE RECORDS SUMMARY | 2018-10-19 10:45 | XMS REPORT | Clinical Summary ---
Author Author [facility] Organization [facility] Address Unknown Phone Unavailable Care Team Providers Care Inserter Operator Name Role Phone Asked, No Pcp PCP Unavailable Allergies Comments Active Allergy Reactions Severity Noted Date Penicillins Rash Low 12/24/2016 Medications End Date Status Medication Sig Dispensed Refills Start Date Active ASPIRIN ORAL Take 324 mg 0 by mouth. Active nitroglycerin Place 2 0 (NITROLINGUAL) 400 sprays under mcg/spray spray the tongue every 5 (five) minutes as needed for chest pain. Active Problems Not on file Social History Date Tobacco Use Types Packs/Day Years Used Never Assessed Sex Assigned at Date Recorded Not on file Industry Job Start Date Occupation Not on file Not on file Not on file Travel End Travel History Travel Start No recent travel history available. Last Filed Vital Signs Not on file Plan of Treatment Not on file Results Not on fileafter 10/18/2017 Advance Directives Patient has advance care planning documents on file. For more information, eliud hagan contact: Rodolfo Sanchez [address] [place] [address]
--- OUTSIDE RECORDS SUMMARY | 2018-10-19 10:45 | XMS REPORT ---
Author Author Admin, [place] Organization [facility] Address [address] [place] [address] Phone Allergies, Adverse Reactions, Alerts Allergy Name Reaction Description Start Date Severity Status Provider PENICILLIN Critical Active Chante Zamudio DO Conditions or Problems Problem Name Problem Code Onset Date Status Entry Date Provider Comment Standard Description Annotate Abdominal pain 789.00 Active Chante Zamudio DO Abdominal pain, unspecified site Depression 311 Active Chante Zamudio DO Depressive disorder, not elsewhere classified Diabetes mellitus uncomplicated type II uncontrolled 250.02 Active Chante Zamudio DO Diabetes mellitus without mention of complication, type II or unspecified type, uncontrolled Fatigue 780.79 Active Chante Zamudio DO Other malaise and fatigue Mammographic screening for breast cancer V76.12 Active Chante Zamudio DO Other screening mammogram Obesity Active Chante Zamudio DO Obesity, unspecified Screening for std V74.5 Active Chante Zamudio DO Screening examination for venereal disease Medication List Medication Instructions Start Date Stop Date Generic Name NDC Status Provider Patient Instruction GLIPIZIDE XL 2.5 MG ORAL TABLET EXTENDED RELEASE 24 HOUR GLIPIZIDE 18701971876 Active Chante Zamudio DO Active METFORMIN HCL 1000 MG ORAL TABLET 1 by mouth twice a day METFORMIN HCL 76759532457 Active Chante Zamudio DO Active Vital Signs Date Name Value Unit Range Description blood pressure, diastolic 74 mm[Hg] BP licea blood pressure, systolic 105 mm[Hg] BP sys height E&M 59 [in_us] Bdy height pulse rate E&M 879 /min Heart rate temperature E&M 98.4 [degF] Body temperature weight E&M 179 [lb_av] Weight Measured Diagnostic Results Date Name Value Unit Range Description Lab Report: CBC With Differential/Platelet, Comp. Metabolic Panel (14), ... - Hematology hematocrit, blood 42.0 % 34.0-46.6 Lab Report: CBC With Differential/Platelet, Comp. Metabolic Panel (14), ... - Chemistry sodium, serum 142 mmol/L 172-891 2113/05/24 thyroid stimulating hormone, serum 1.780 u[iU]/mL 0.450-4.500 Lab Report: CBC With Differential/Platelet, Comp. Metabolic Panel (14), ... - Hematology neutrophils as percent of blood leukocytes 61 % Not Estab. basophils as percent of blood leukocytes 0 % Not Estab. Lab Report: CBC With Differential/Platelet, Comp. Metabolic Panel (14), ... - Serology rapid plasma reagin antibody, serum Non Reactive Non Reactive Lab Report: CBC With Differential/Platelet, Comp. Metabolic Panel (14), ... - Chemistry hepatitis B surface antigen Negative Negative carbon dioxide, venous blood 25 mmol/L 20-29 chloride, serum 99 mmol/L 96-106 calcium, serum 9.8 mg/dL 8.7-10.2 urea nitrogen, blood 14 mg/dL 6-24 alanine aminotransferase (SGPT), serum 25 U/L 0-32 Lab Report: CBC With Differential/Platelet, Comp. Metabolic Panel (14), ... - Hematology mean corpuscular hemoglobin, RBC 29.3 pg 26.6-33.0 Lab Report: CBC With Differential/Platelet, Comp. Metabolic Panel (14), ... - Chemistry lipase, serum 47 U/L [iU]/L 14-72 Lab Report: CBC With Differential/Platelet, Comp. Metabolic Panel (14), ... - Hematology mean corpuscular hemoglobin concentration, RBC 34.0 G/DL % 31.5-35.7 Lab Report: CBC With Differential/Platelet, Comp. Metabolic Panel (14), ... - Chemistry protein, total, serum 7.3 g/dL 6.0-8.5 alkaline phosphatase, serum 119 U/L 39-117 Lab Report: CBC With Differential/Platelet, Comp. Metabolic Panel (14), ... - Hematology erythrocyte (RBC) count 4.88 X10E6/UL 10*6/mm3 3.77-5.28 hemoglobin, blood 14.3 g/dL 11.1-15.9 Lab Report: CBC With Differential/Platelet, Comp. Metabolic Panel (14), ... - Serology hepatitis C antibody, serum <0.1 0.0-0.9 Lab Report: CBC With Differential/Platelet, Comp. Metabolic Panel (14), ... - Chemistry Absolute Neutrophils 6.6 X10E3/UL 10*3/uL 1.4-7.0 urea nitrogen/creatinine ratio, serum 30 9-23 Lab Report: CBC With Differential/Platelet, Comp. Metabolic Panel (14), ... - Hematology lymphocytes as percent of blood leukocytes 29 % Not Estab. Lab Report: CBC With Differential/Platelet, Comp. Metabolic Panel (14), ... - Chemistry hemoglobin A1C, blood, as % of total hemoglobin 12.2 % 4.8-5.6 Lab Report: CBC With Differential/Platelet, Comp. Metabolic Panel (14), ... - Hematology mean corpuscular volume, RBC 86 fL 79-97 Lab Report: CBC With Differential/Platelet, Comp. Metabolic Panel (14), ... - Genetics/fertility eGFR if 134 mL/min/1.73m2 >59 Lab Report: CBC With Differential/Platelet, Comp. Metabolic Panel (14), ... - Hematology basophil count, absolute 0.0 x10E3/uL 0.0-0.2 monocytes as percent of blood leukocytes 5 % Not Estab. Lab Report: CBC With Differential/Platelet, Comp. Metabolic Panel (14), ... - Chemistry globulin, serum 2.9 1.5-4.5 Estimated Glomerular Filtration Rate (calc) 116 mL/min/1.73m2 >59 albumin/globulin ratio, serum 1.5 1.2-2.2 creatinine, serum 0.47 mg/dL 0.57-1.00 bilirubin, serum, total 0.5 mg/dL 0.0-1.2 Lab Report: CBC With Differential/Platelet, Comp. Metabolic Panel (14), ... - Hematology Eosinophil Absolute Count 0.6 X10E3/UL 10*3/uL 0.0-0.4 eosinophils as percent of blood leukocytes 5 % Not Estab. Lab Report: CBC With Differential/Platelet, Comp. Metabolic Panel (14), ... - Chemistry blood glucose, random 229 mg/dL 65-99 aspartate aminotransferase (SGOT), serum 16 U/L 0-40 Lab Report: CBC With Differential/Platelet, Comp. Metabolic Panel (14), ... - Hematology red blood cell distribution width 12.9 % 12.3-15.4 leukocyte count, blood 11.0 X10E3/UL 10*3/mm3 3.4-10.8 Lab Report: CBC With Differential/Platelet, Comp. Metabolic Panel (14), ... - Chemistry potassium, serum 4.3 mmol/L 3.5-5.2 Lab Report: CBC With Differential/Platelet, Comp. Metabolic Panel (14), ... - Hematology monocyte count, blood, automated 0.5 X10E3/UL 10*3/uL 0.1-0.9 Lab Report: CBC With Differential/Platelet, Comp. Metabolic Panel (14), ... - Chemistry immature granulocytes, percentage of total cells, blood 0 % Not Estab. albumin, serum 4.4 g/dL 3.5-5.5 Lab Report: CBC With Differential/Platelet, Comp. Metabolic Panel (14), ... - Hematology platelet count 332 X10E3/UL 10*3/mm3 009-059 4718/05/24 lymphocyte count, blood, automated 3.2 X10E3/UL 10*3/mm3 0.7-3.1 Encounters Date Encounter Provider Code Facility 16:14:16 CDT New Patient Detailed - [id number] Chante Zamudio DO [id number]-[id number] [facility]
--- OUTSIDE RECORDS SUMMARY | 2018-10-19 10:45 | XMS REPORT ---
Author [facility] Address Unknown Phone Unavailable Care Team Providers Care Data Keyer Name Role Phone Unavailable Unavailable Problems This patient has no known problems. Allergies, Adverse Reactions, Alerts This patient has no known allergies or adverse reactions. Medications This patient has no known medications. Encounters Start Date/Time End Date/Time Encounter Type Admission Type Attending [facility] Facility Care Department Encounter ID 2018-01-29 10:05:41 Inpatient [facility] [id number] 2018-01-28 19:13:16 Inpatient [facility] [id number] 2018-09-07 13:14:45 2018-09-07 13:14:45 Emergency [facility] [id number] 2018-09-07 05:26:52 2018-09-07 05:26:52 Emergency [facility] [id number] 2018-09-07 04:01:00 2018-09-07 04:01:00 Emergency [facility] [id number] 2018-03-05 00:00:00 2018-03-05 00:00:00 Outpatient [facility] [id number] 2018-02-08 00:00:00 2018-02-08 00:00:00 Outpatient [facility] [id number] 2018-02-08 00:00:00 2018-02-08 00:00:00 Outpatient [facility] [id number] 2018-02-05 00:00:00 2018-02-05 00:00:00 Outpatient [facility] [id number] 2018-01-26 17:56:04 2018-01-26 17:56:04 Emergency [facility] [id number] 2018-01-26 12:49:56 2018-01-26 12:49:56 Emergency [facility] [id number] 2018-01-26 03:30:27 2018-01-26 03:30:27 Emergency [facility] [id number] 2018-01-26 00:20:54 2018-01-26 00:20:54 Inpatient [facility] [id number] 2017-05-24 08:56:21 2017-05-24 08:56:21 Emergency [facility] [id number] 2017-05-24 07:34:29 2017-05-24 07:34:29 Emergency [facility] [id number]
[2018-10-19 11:46] LABS: BASOPHILS # (AUTO) 0.1 (0.0-0.1); BASOPHILS % 0.6 % (0.0-1.0); EOSINOPHILS # (AUTO) 0.5 (0.0-0.4); HEMATOCRIT 38.9 % (34.2-44.1); HEMOGLOBIN 13.5 g/dL (12.0-16.0); LYMPHOCYTES # (AUTO) 2.7 (1.0-3.2); LYMPHOCYTES % 25.8 % (18.0-39.1); MEAN CORPUSCULAR HEMOGLOBIN 29.2 pg (28-32); MEAN CORPUSCULAR HGB CONC 34.7 g/dL (31-35); MEAN CORPUSCULAR VOLUME 84.2 fL (81-99); MONOCYTES # (AUTO) 0.6 (0.2-0.8); MONOCYTES % 6.1 % (4.4-11.3); NEUTROPHILS # (AUTO) 6.5 (2.1-6.9); NEUTROPHILS % 62.1 % (38.7-80.0); PLATELET COUNT 262 x10e3/uL (140-360); RED BLOOD COUNT 4.62 x10e6/uL (3.6-5.1); RED CELL DISTRIBUTION WIDTH 12.1 % (11.7-14.4)
[2018-10-19 12:45] LABS: ALANINE AMINOTRANSFERASE 15 IU/L (0-55); ALBUMIN 3.2 g/dL (3.5-5.0); ALBUMIN/GLOBULIN RATIO 0.8 (0.8-2.0); ANION GAP 13.3 mmol/L (8-16); BLOOD UREA NITROGEN 9 mg/dL (7-26); BUN/CREATININE RATIO 14 (6-25); CALCIUM 9.4 mg/dL (8.4-10.2); CARBON DIOXIDE 25 mmol/L (22-29); CHLORIDE 101 mmol/L (98-107); CREATININE, SERUM 0.66 mg/dL (0.57-1.11); EST GLOMERULAR FILTRATION RATE > 60 ML/MIN (60-); GLUCOSE 280 mg/dL (74-118); POTASSIUM 4.3 mmol/L (3.5-5.1); SODIUM 135 mmol/L (136-145)
--- NOTE | 2018-10-19 13:44 | Operative Report ---
DATE OF PROCEDURE: 10/19/2018 SURGEON: Osiel No MD PREOPERATIVE DIAGNOSIS: Abscess of the left lower quadrant/left hip region. PROCEDURE PERFORMED: Incision and drainage of abscess of left lower quadrant/upper left hip area. ANESTHESIA: General. ESTIMATED BLOOD LOSS: Minimal. DRAINS: None. COMPLICATIONS: None. INDICATION AND FINDINGS: A 48-year-old diabetic female admitted for drainage of an abscess that started as a pimple. Intraoperative findings were an abscess located in the lateral side of the abdomen in left lower quadrant located laterally and inferiorly somewhat superior to the left hip. She had a redundant panniculus. There was no foul-smelling pus. Aerobic and anaerobic cultures were taken. DESCRIPTION OF PROCEDURE: With the patient lying on the operative table in the supine position and after administration of general anesthesia, she was prepped and draped for incision and drainage of abscess of left hip area. An incision was made transversely and then ending in a cruciate manner, the edges were excised to allow drainage, the loculations were broken down, cultures were taken, all the pus was drained and then the wound was irrigated with saline and peroxide and packed with iodoform gauze. Sterile dressing was applied. The patient tolerated the procedure well and was taken to recovery room in stable condition. Osiel No MD PJR/MODL /[id number]
[2018-10-19] MEDS: FENTANYL CITRATE/PF 100MCG/2 ML INJ ONE (14:09)
[2018-10-19 15:20] VITALS: BP 104/70
[2018-10-19] MEDS: HYDROCODONE/APAP 10MG-325MG TAB ONE (18:53)
[2018-10-19 22:58] LABS: ALKALINE PHOSPHATASE 113 IU/L (40-150)
== END | disposition home or self-care (01) ==
LOC: OR 10:42
PROVIDERS: ATTEND Surgery
DX: L02.416 Cutaneous abscess of left lower limb (principal); L02.211 Cutaneous abscess of abdominal wall; Z79.84 Long term (current) use of oral hypoglycemic drugs; E11.9 Type 2 diabetes mellitus without complications; J45.909 Unspecified asthma, uncomplicated; Z88.0 Allergy status to penicillin; Z68.42 Body mass index [BMI] 45.0-49.9, adult
CPT/HCPCS: 10061; 36415; 80053; 82948; 85025; 87071; 87075; 87205; 93005; J1100; J2001; J2250; J2405; J2704; J1817; J3010